=== PATIENT | female | born 1960 | race Caucasian/White ===

== ENCOUNTER 2020-10-11 05:00 | Emergency (ER) | payer BC ==
[~2020-10-11 05:00] MED LIST: CEPH500 PO; Cleocin HCl150 MG PO; Coumadin5 MG PO; FISH1000 PO; HYDACE5 PO; LEVSOD50 PO; MULVITMIND PO; Norco 5-325 Ta1 EACH PO; PANT40 PO; RXHYDACE PO
== END 2020-10-11 05:40 | disposition home or self-care (01) ==
LOC: ER 05:00
DX: K42.9 Umbilical hernia without obstruction or gangrene (principal); E03.9 Hypothyroidism, unspecified; Z79.899 Other long term (current) drug therapy
CPT/HCPCS: 99282

== ENCOUNTER 2020-10-11 08:43 | Emergency (ER) | payer BC ==
[~2020-10-11] VITALS: Ht 167.6 cm; Wt 97.5 kg
== END 2020-10-11 10:09 | disposition home or self-care (01) ==
LOC: ER 08:43
DX: K42.9 Umbilical hernia without obstruction or gangrene (principal); E03.9 Hypothyroidism, unspecified; Z79.899 Other long term (current) drug therapy
CPT/HCPCS: 96372; 99283-25; J1170

== ENCOUNTER 2020-11-03 12:53 | Day surgery (SDC) | payer BC ==
[~2020-11-03] VITALS: Ht 167.6 cm; Wt 101.1 kg
--- NOTE | 2020-11-03 13:48 | NUR ---
11/03/20 1348 Conrad Bustamante CALL LIGHT WITHIN REACH.
== END 2020-11-03 15:34 | disposition home or self-care (01) ==
LOC: ORSCSDS 12:53
PROVIDERS: Surgery
PROC: 0WUF0JZ Supplement Abdominal Wall with Synthetic Substitute, Open Approach (ICD-10-PCS; principal; 2020-11-03 14:00)
DX: K42.9 Umbilical hernia without obstruction or gangrene (principal); E03.9 Hypothyroidism, unspecified; E78.00 Pure hypercholesterolemia, unspecified; E66.01 Morbid (severe) obesity due to excess calories; Z68.36 Body mass index [BMI] 36.0-36.9, adult
CPT/HCPCS: C1781; J0690; J1100; J1885; J2250; J2405; J2704; J3010; J7120

== ENCOUNTER 2021-01-13 18:54 | Observation (INO) | payer BC ==
[~2021-01-13] VITALS: Ht 167.6 cm; Wt 104.0 kg
[2021-01-13 19:27] LABS: BASOPHILS ABSOLUTE AUTO 0.02 K/mm3 (0.00-0.23); BASOPHILS PERCENT AUTO 0 % (0-2); EOSINOPHILS ABSOLUTE AUTO 0.18 K/mm3 (0.00-0.68); EOSINOPHILS PERCENT AUTO 3 % (0-6); Hemoglobin 15.4 g/dL (11.5-16.0); IMMATURE GRAN ABSOLUTE AUTO 0.01 K/mm3 (0.00-0.10); IMMATURE GRAN PERCENT AUTO 0 % (0-1); LYMPHOCYTES ABSOLUTE AUTO 2.27 K/mm3 (0.84-5.20); LYMPHOCYTES PERCENT AUTO 32 % (21-46); MONOCYTES ABSOLUTE AUTO 0.41 K/mm3 (0.16-1.47); MONOCYTES PERCENT AUTO 6 % (4-13); Mean Corpuscular HGB 30.4 pg (26.0-34.0); Mean Corpuscular HGB Conc 32.8 g/dL (31.5-36.5); Mean Corpuscular Volume 93 fL (80-100); Mean Platelet Volume 10.6 fL (9.1-12.4); NEUTROPHILS ABSOLUTE AUTO 4.19 K/mm3 (1.96-9.15); NEUTROPHILS PERCENT AUTO 59 % (41-73); Platelet Count 264 K/mm3 (150-400); RDW Coefficient Variation 13.1 % (11.7-14.2); RDW Standard Deviation 44.4 fL (35.1-46.3); Red Blood Cell Count 5.06 M/mm3 (3.80-5.20); White Blood Cell Count 7.08 K/mm3 (4.00-11.30)
[2021-01-13 19:44] LABS: Alanine Aminotransfer (ALT/SGP 22 U/L (12-78); Albumin, Blood 3.8 g/dL (3.4-5.0); Albumin/Globulin Ratio 0.9 (0.8-1.8); Alk Phos 96 U/L (50-136); Anion Gap 4 mmol/L (6-16); Aspartate Aminotrans (AST/SGOT 23 U/L (12-37); Bilirubin, Total 0.3 mg/dL (0.1-1.0); Blood Urea Nitrogen 17 mg/dL (8-24); CO2, Blood 32 mmol/L (21-32); Calcium, Blood 9.9 mg/dL (8.5-10.1); Chloride, Blood 102 mmol/L (98-108); Creatinine, Blood 0.71 mg/dL (0.40-1.00); Globulin, Blood 4.4 g/dL (2.2-4.0); Glomerular Filtration Rate >60 (60-); Glucose, Blood 107 mg/dL (70-99); Potassium, Blood 3.7 mmol/L (3.5-5.5); Sodium, Blood 138 mmol/L (136-145); Total Protein, Blood 8.2 g/dL (6.4-8.2); Troponin I 0.182 ng/mL (0.000-0.040)
[2021-01-13] MEDS ORDERED: SYNTHROID125 MC1 PO (20:28)
[2021-01-13 23:04] LABS: D-Dimer, Quantitative <0.19 mg/L FEU (0.00-0.52)
--- NOTE | 2021-01-13 23:30 | NUR ---
ADMISSION NOTE 60 YO FEMALE ADMITTED FOR ELEVATED TROPONIN LEVELS . AT HOME, PT FELT DIZZY AND SOB WHEN AMBULATING, FELT THAT SHE HAD A RAPID HEART RATE WITH PALPITATIONS. AT THIS TIME, NO C/O CHEST PAIN, PALPITATIONS OR SOB. PT IS A&O X4, ABLE TO AMBULATE WITH SBA TO BATHROOM FOR IV CORD MANAGEMENT. KINGA IS PRESENT IN THE ROOM. DISCUSSED PLANS FOR STRESS TEST OR ANGIOGRAM TOMORROW 01/14/[address] DUQUE IN THE ROOM. HEPARIN DRIP STARTED AT 19ML/HR. PT MONITORED VIA TELE, SINUS RHTHYM/SINUS KALE WITH PVC'S NOTED. FLUSHED LEFT AC 20 GAUGE IV. SKIN C/D/I. PT ORIENTED TO ROOM, CALL LIGHT IN PLACE. WILL CONTINUE TO MONITOR. ADMISSION COMPLETE.
[2021-01-14 04:19] LABS: BASOPHILS ABSOLUTE AUTO 0.02 K/mm3 (0.00-0.23); BASOPHILS PERCENT AUTO 0 % (0-2); EOSINOPHILS PERCENT AUTO 3 % (0-6); Hematocrit 41.5 % (33.0-51.0); Hemoglobin 13.6 g/dL (11.5-16.0); IMMATURE GRAN ABSOLUTE AUTO 0.02 K/mm3 (0.00-0.10); IMMATURE GRAN PERCENT AUTO 0 % (0-1); LYMPHOCYTES ABSOLUTE AUTO 2.27 K/mm3 (0.84-5.20); LYMPHOCYTES PERCENT AUTO 36 % (21-46); MONOCYTES ABSOLUTE AUTO 0.45 K/mm3 (0.16-1.47); MONOCYTES PERCENT AUTO 7 % (4-13); Mean Corpuscular HGB 30.4 pg (26.0-34.0); Mean Corpuscular HGB Conc 32.8 g/dL (31.5-36.5); Mean Corpuscular Volume 93 fL (80-100); Mean Platelet Volume 10.5 fL (9.1-12.4); NEUTROPHILS ABSOLUTE AUTO 3.44 K/mm3 (1.96-9.15); NEUTROPHILS PERCENT AUTO 54 % (41-73); Platelet Count 222 K/mm3 (150-400); RDW Coefficient Variation 13.1 % (11.7-14.2); RDW Standard Deviation 44.6 fL (35.1-46.3); Red Blood Cell Count 4.47 M/mm3 (3.80-5.20)
[2021-01-14 04:47] LABS: Alanine Aminotransfer (ALT/SGP 18 U/L (12-78); Albumin, Blood 3.2 g/dL (3.4-5.0); Albumin/Globulin Ratio 0.9 (0.8-1.8); Alk Phos 79 U/L (50-136); Anion Gap 3 mmol/L (6-16); Aspartate Aminotrans (AST/SGOT 20 U/L (12-37); Bilirubin, Total 0.4 mg/dL (0.1-1.0); Blood Urea Nitrogen 18 mg/dL (8-24); Bun/Creatinine Ratio 26.2 (12.0-20.0); CO2, Blood 31 mmol/L (21-32); CPK Creatine Kinase 60 U/L (26-193); Calcium, Blood 9.1 mg/dL (8.5-10.1); Chloride, Blood 105 mmol/L (98-108); Creatinine, Blood 0.69 mg/dL (0.40-1.00); Free Thyroxine 1.06 ng/dL (0.70-1.60); Globulin, Blood 3.6 g/dL (2.2-4.0); Glomerular Filtration Rate >60 (60-); Glucose, Blood 88 mg/dL (70-99); Potassium, Blood 4.1 mmol/L (3.5-5.5); Sodium, Blood 139 mmol/L (136-145); Total Protein, Blood 6.8 g/dL (6.4-8.2); Troponin I 0.152 ng/mL (0.000-0.040)
--- NOTE | 2021-01-14 05:36 | NUR ---
PHONE CALL TO PHARMACY - SPOKE TO GAIL PEDERSEN - NOTIFIED OF CORRECTED BODYWEIGHT 104.6 KGS. NURSE UPDATED ADMISSION WEIGHT TO REFLECT ACCURATE BODYWEIGHT. AT THIS TIME, CONTINUE HEPARIN DRIP AT TITRATED RATE 15 MCGS/KG/HR. WILL CONTINUE TO MONITOR LABS AND PT STATUS.
--- NOTE | 2021-01-14 05:40 | NUR ---
SHIFT SUMMARY PT SLEPT WELL THIS SHIFT. NO C/O CHEST PAIN OR SOB. ABLE TO AMBULATE WITH SBA TO BATHROOM. NO DIZZINESS WITH AMBULATION. NOTIFIED PT THAT CARDIOLOGY CONSULT IS WITH DR. SIMONS TODAY. SATING ABOVE 94% ON ROOM AIR. CALL LIGHT AT BEDSIDE, WILL CONTINUE TO MONITOR.
--- NOTE | 2021-01-14 09:40 | NUR ---
PT ALERT AND ORIENTED X4. ON ROOM AIR SATING ABOVE 94%. DENIES CHEST PAIN/PRESSURE. VITAL SIGNS STABLE. TELE SHOWING SINUS WITH HR 60'S. CLAIMS CHEST PAIN STOPPED YESTERDAY AROUND 3-4PM AND HAS NOT HAPPENED SINCE. DENIES OVERALL PAIN AT THIS TIME. RIGHT LEG SWELLING, HX OF DVT. PT DESCRIBES SWELLING AT CHRONIC. HEPARIN AND NS INFUSING. INDEPENDENT WITH SBA FOR SAFETY. NPO AT THIS TIME. CALL LIGHT IN REACH. BED IN LOW LOCKED POSITION. WILL CONTINUE TO MONITOR.
--- NOTE | 2021-01-14 11:34 | NUR ---
PT UP FOR WALK AROUND UNIT. NO CHANGES IN SYMPTOMS. PT DENIES CHEST PAIN, DIZZINESS OR SOB. PLAN FOR CARDIAC STRESS TEST TOMORROW. NPO AT MIDNIGHT TONIGHT. VITAL SIGNS REMAIN STABLE. WILL CONTINUE TO MONITOR.
--- NOTE | 2021-01-14 12:32 | NUR ---
Echocardiogram completed.
[2021-01-14 12:33] LABS: Troponin I 0.07 ng/mL (0.000-0.040)
--- NOTE | 2021-01-14 17:23 | NUR ---
SHIFT SUMMARY: PT REMAINS ALERT AND ORIENTED X4. ON ROOM AIR AND TELE SHOWING SINUS. DENIES PAIN AT THIS TIME. VITAL SIGNS STABLE. DENIES CHEST PAIN/PRESSURE. PLAN FOR STRESS TEST TOMORROW, NPO AT MIDNIGHT. AT THIS TIME SITTING UP IN BED, EATING DINNER. IN TO VISIT WITH PATIENT. UP TO WALK AROUND UNIT TWICE THIS SHIFT, WITH NO SYMPTOMS. CALL LIGHT IN REACH. BED IN LOW LOCKED POSITION. WILL CONTINUE TO MONITOR AND REPORT OFF.
--- NOTE | 2021-01-15 00:08 | NUR ---
INTITAL ASSESSMENT 193: PT SITTING IN BED. NO C/O CHEST PAIN, PALPITATIONS OR SOB. TROPONIN LEVELS HAVE BEEN DECREASING. PT IS A&O X4, ABLE TO AMBULATE INDEPENDENTLY. KINGA IS PRESENT IN THE ROOM. DISCUSSED PLANS FOR STRESS TEST 01/15/21 . HEPARIN DRIP INFUSING AT 23.4 ML/HR VIA LEFT AC 20 GAUGE IV. VSS. PT MONITORED VIA TELE, SINUS KALE RHYTHM NOTED. SKIN C/D/I. WILL CONTINUE TO MONITOR.
[2021-01-15 01:16] LABS: BASOPHILS ABSOLUTE AUTO 0.01 K/mm3 (0.00-0.23); BASOPHILS PERCENT AUTO 0 % (0-2); EOSINOPHILS ABSOLUTE AUTO 0.17 K/mm3 (0.00-0.68); EOSINOPHILS PERCENT AUTO 3 % (0-6); Hematocrit 40.6 % (33.0-51.0); Hemoglobin 13.3 g/dL (11.5-16.0); IMMATURE GRAN ABSOLUTE AUTO 0.01 K/mm3 (0.00-0.10); IMMATURE GRAN PERCENT AUTO 0 % (0-1); LYMPHOCYTES PERCENT AUTO 40 % (21-46); MONOCYTES ABSOLUTE AUTO 0.38 K/mm3 (0.16-1.47); MONOCYTES PERCENT AUTO 7 % (4-13); Mean Corpuscular HGB 30.2 pg (26.0-34.0); Mean Corpuscular HGB Conc 32.8 g/dL (31.5-36.5); Mean Corpuscular Volume 92 fL (80-100); Mean Platelet Volume 10.4 fL (9.1-12.4); NEUTROPHILS ABSOLUTE AUTO 2.84 K/mm3 (1.96-9.15); NEUTROPHILS PERCENT AUTO 50 % (41-73); Platelet Count 206 K/mm3 (150-400); RDW Standard Deviation 44.4 fL (35.1-46.3); White Blood Cell Count 5.71 K/mm3 (4.00-11.30)
[2021-01-15 01:35] LABS: Anion Gap 4 mmol/L (6-16); Blood Urea Nitrogen 19 mg/dL (8-24); Bun/Creatinine Ratio 29.8 (12.0-20.0); CO2, Blood 29 mmol/L (21-32); Calcium, Blood 8.5 mg/dL (8.5-10.1); Chloride, Blood 105 mmol/L (98-108); Creatinine, Blood 0.64 mg/dL (0.40-1.00); Glomerular Filtration Rate >60 (60-); Glucose, Blood 84 mg/dL (70-99); Potassium, Blood 3.8 mmol/L (3.5-5.5); Sodium, Blood 138 mmol/L (136-145)
--- NOTE | 2021-01-15 06:13 | NUR ---
SHIFT SUMMARY WHILE SLEEPING, PT'S HEART RATE WOULD BECOME SINUS KALE IN THE 50'S. WHILE AWAKE, REMAIN SINUS IN THE 70'S. NO C/O SOB, CP OR DIZZINESS. VSS. PT ABLE T AMBULATE TO BATHROOM INDEPENDENTLY, AND SAFELY MANAGE IV POLE. PLAN IS FOR A STRESS TEST TODAY. NPO AFTER MIDNIGHT. WILL CONTINUE TO MONITOR.
--- NOTE | 2021-01-15 12:16 | NUR ---
SHIFT ASSESSMENT DOCUMENTATION: INCORRECT DOCUMENTATION OF WOUND, PSYCHOSOCIAL, ASSESSMENTS, CORRECTED SHIFT ASSESSMENT WITH CURRENT INFORMATION AND REMOVED ADDED DX FROM INCORRECT DOCUMENTATION OF ASSESSMENTS. CWF
[2021-01-15] MEDS ORDERED: ATOR40TA PO (15:49)
[2021-01-15] MEDS ORDERED: ASPI81CH PO (15:49)
--- NOTE | 2021-01-15 17:00 | NUR ---
DISCHARGE SUMMARY NOTE: PATIENTS ARRIVED TO PICKUP PATIENT WITH A SET OF CLOTHES, IV'S D/C'd WITH NO COMPLICATIONS OR CONCERNS. TELEMETRY RETURNED AND PATIENT WAS INSTRUCTED OF DISCHARGE INSTRUCTIONS AND MEDICATION INSTRUCTIONS. PATIENT WAS DISCHARGED WITH NO COMPLICATIONS QUESTIONS OR CONCERNS. DENIES ANY CHEST PAIN SOB OR ANY DISTRESS AT THIS TIME. .CWF
== END 2021-01-15 17:00 | disposition home or self-care (01) ==
LOC: ER 18:54 → PCU 18:55
PROVIDERS: Family Medicine; Physician Assistant; ADMIT Internal Medicine
DX: R00.2 Palpitations (principal); R79.89 Other specified abnormal findings of blood chemistry; E03.9 Hypothyroidism, unspecified; I11.9 Hypertensive heart disease without heart failure; Z86.718 Personal history of other venous thrombosis and embolism; Z98.84 Bariatric surgery status; I08.1 Rheumatic disorders of both mitral and tricuspid valves
CPT/HCPCS: 36415; 71046; 78452; 80048; 80053; 82550; 83735; 84439; 84443; 84484; 85025; 85379; 85730; 93005; 93010; 93017; 93306; 96374; 96376; 99285-25; A9270; A9500; G0378; J1644; J7030

== ENCOUNTER → 2022-06-14 | Outpatient (CLI) | payer BC ==
[~2022-06-14] MED LIST changes: +ASPI81CH PO; +ATOR40TA PO; +SYNTHROID125 MC1 PO
== END ==
LOC: LAB SHORT 09:15
PROVIDERS: Internal Medicine
DX: Z01.419 Encounter for gynecological examination (general) (routine) without abnormal findings (principal)
CPT/HCPCS: G0145

== ENCOUNTER → 2023-09-12 | Outpatient (CLI) | payer BC | END | disposition home or self-care (01) | LOC: LAB SHORT 18:05 → LAB 18:05 | DX: N39.0 Urinary tract infection, site not specified (principal) | CPT/HCPCS: 87077; 87086; 87186 ==